=== PATIENT | female | born 1970 | race Caucasian/White ===

== ENCOUNTER → 2017-07-25 | Day surgery (SDC) | payer OTHER ==
[~2017-07-25] MED LIST: Dextrose 5%-Lactated Ringers 1,000 ML IV SCH; Ketorolac 60 MG/2 ML SDV IM ONE; Lidocaine 0.5% 50 ML SDV ONE; Lidocaine 1% with EPINEPHrine 1:100,000 50 ML MDV ONE; Midazolam 1 MG/ML 2 ML SDV ONE; Propofol 200 MG/20 ML SDV ONE; ceFAZolin 2 GM in Premix Bag 1 BAG IV ONE; ceFAZolin 2 GM in Sodium Chloride 0.9% 50 ML IV ONE; fentaNYL 100 MCG/2 ML SDV ONE
[2017-07-25 10:52] VITALS: BP 121/79
--- NOTE | 2017-07-27 16:41 | OR ---
DATE OF PROCEDURE: 07/25/2017 PREOPERATIVE DIAGNOSIS: Left carpal tunnel syndrome. POSTOPERATIVE DIAGNOSIS: Left carpal tunnel syndrome. OPERATIVE PROCEDURE: Left carpal tunnel release (57129). ANESTHESIA: IV block plus sedation. INDICATION FOR PROCEDURE: This 47-year-old is presenting with bilateral carpal tunnel syndrome. Clinically, the left side is more severely affected, and she wished to proceed with left carpal tunnel release at this time. Potential risks including bleeding, infection, injury to median nerve and/or its branches, possible incomplete relief of symptoms following the release were all reviewed, and the patient wishes to proceed. DETAILS OF PROCEDURE: The patient was taken to the operating room and placed in a supine position. IV block was placed affecting the left forearm and hand, while the patient received concurrent IV sedation, those areas were prepped and draped. A standard carpal tunnel incision was then made over the left hand and wrist, and carried down through the skin and subcutaneous tissue. The transverse carpal ligament was then identified and divided to maintain an ulnar orientation with regard to the median nerve to minimize chances of nerve branch injury. This extended down into the palm of hand until there was complete relief of any pressure over the median nerve. Median nerve otherwise appeared to be intact, and the transverse carpal ligament, as expected, was fairly thickened and retracted under tension. The incision was then closed with 4-0 Vicryl in a subdermal stitch and then a 4-0 Prolene skin stitch. Dressing was applied. The patient was taken to the recovery room in a satisfactory condition. There were no evident complications. Shaheen Quinteros MD /[id number]
== END ==
LOC: JP.SDS 07:41
PROVIDERS: ATTEND Surgery
DX: G56.02 Carpal tunnel syndrome, left upper limb (principal); Z88.1 Allergy status to other antibiotic agents; Z88.8 Allergy status to other drugs, medicaments and biological substances; Z87.891 Personal history of nicotine dependence; Z98.890 Other specified postprocedural states; Z90.49 Acquired absence of other specified parts of digestive tract; Z68.30 Body mass index [BMI] 30.0-30.9, adult
CPT/HCPCS: 64721; J0690; J1885; J2250; J2704; J3010; J7042; J7050

== ENCOUNTER 2017-09-09 05:23 | Day surgery (SDC) | payer OTHER ==
[2017-09-09] MEDS ORDERED: Acetaminophen 500 MG Tab PO ONE (06:25)
[2017-09-09] MEDS ORDERED: Dextrose 5%-Lactated Ringers 1,000 ML IV SCH (06:30)
[2017-09-09] MEDS ORDERED: fentaNYL 100 MCG/2 ML SDV ONE (07:03)
[2017-09-09] MEDS ORDERED: Propofol 200 MG/20 ML SDV ONE (07:03)
[2017-09-09] MEDS ORDERED: Midazolam 1 MG/ML 2 ML SDV ONE (07:03)
[2017-09-09] MEDS ORDERED: Lidocaine 0.5% 50 ML SDV ONE (07:06)
[2017-09-09] MEDS ORDERED: Lidocaine 1% with EPINEPHrine 1:100,000 50 ML MDV ONE (07:07)
[2017-09-09] MEDS ORDERED: ceFAZolin 1 GM in Premix Bag 1 BAG IV ONE (07:15)
[2017-09-09] MEDS ORDERED: Ketorolac 60 MG/2 ML SDV IM ONE (08:20)
[2017-09-09] MEDS ORDERED: Acetaminophen/HYDROcodone 325-5 MG Tab PO ONE (08:42)
[2017-09-09 08:59] VITALS: BP 136/91
--- NOTE | 2017-09-12 09:53 | OR ---
DATE OF PROCEDURE: 09/09/2017 PREOPERATIVE DIAGNOSIS: Right carpal tunnel syndrome. POSTOPERATIVE DIAGNOSES: 1. Right carpal tunnel syndrome. 2. Lipoma located within the right carpal tunnel. OPERATIVE PROCEDURE: 1. Right carpal tunnel release (06259). 2. Excision of a lipoma located within the carpal tunnel (09923). ANESTHESIA: IV block plus sedation. INDICATION FOR PROCEDURE: A 47-year-old, recently presenting with bilateral carpal tunnel syndrome. She previously underwent a left carpal tunnel release with good results and now presents for the right side to be corrected. Potential risks including bleeding, infection, injury to the median nerve and/or its branches, possible incomplete relief of symptoms were all reviewed, and the patient wishes to proceed. DETAILS OF PROCEDURE: The patient was taken to the operating room and placed in a supine position. After IV sedation was administered, IV block was placed affecting the right forearm and hand and those areas were prepped and draped. A standard carpal tunnel incision was then made and carried down through the skin and subcutaneous tissue. The transverse carpal ligament was then divided for its length and did retract under a considerable tension and was noted to be quite thickened. An 1.5 cm lipoma was also located within the carpal tunnel, likely contributing to patient's symptoms. This was excised and sent as a separate specimen. At that point, no further problems were noted. The incision was closed with some 4-0 Vicryl subdermal stitch and then 5-0 Prolene skin stitch. Dressing was applied. The patient was taken to the recovery room in satisfactory condition. Shaheen Quinteros MD /[id number]
== END 2017-09-09 09:14 | disposition home or self-care (01) ==
LOC: JP.SDS 05:23
PROVIDERS: ATTEND Surgery
DX: G56.01 Carpal tunnel syndrome, right upper limb (principal); D17.21 Benign lipomatous neoplasm of skin and subcutaneous tissue of right arm; Z88.1 Allergy status to other antibiotic agents; Z88.8 Allergy status to other drugs, medicaments and biological substances; F17.200 Nicotine dependence, unspecified, uncomplicated
CPT/HCPCS: 11402; 12031; 64721; A9270; J0690; J1885; J2250; J2704; J3010; J7042; 88304

== ENCOUNTER 2018-06-07 07:35 | Day surgery (SDC) | payer OTHER ==
[2018-06-07] MEDS ORDERED: Propofol 200 MG/20 ML SDV ONE (07:48)
[2018-06-07] MEDS ORDERED: Midazolam 1 MG/ML 2 ML SDV ONE (07:49)
[2018-06-07] MEDS ORDERED: fentaNYL 100 MCG/2 ML SDV ONE (07:49)
[2018-06-07] MEDS ORDERED: Lactated Ringers 1,000 ML IV SCH (08:45)
[2018-06-07 10:42] VITALS: BP 132/78
--- NOTE | 2018-06-07 11:00 | OR ---
DATE OF PROCEDURE: 06/07/2018 SURGEON: Agapito Palma MD PREOPERATIVE DIAGNOSIS: Colon cancer screening. POSTOPERATIVE DIAGNOSIS: Moderate-sized polyp, 25 cm from the anal verge. PROCEDURES: Colonoscopy to the cecum with snare cautery polypectomy, 25 cm from the anal verge. ANESTHESIA: IV anesthesia with monitored anesthesia care. INDICATION: This 48-year-old white female is referred for a colonoscopy for colon cancer screening. She has never had a colonoscopic exam. I counseled her for the procedure including risks and alternatives, and she gave her informed consent to proceed. DESCRIPTION OF PROCEDURE: The patient was placed in the left lateral decubitus position. IV anesthesia was administered by the Anesthesia Service. Time-out was held. A rectal exam was performed, which was unremarkable. The flexible video Olympus colonoscope was introduced through her anus, up her rectum and out her colon, all the way to the cecum. Once the cecum was reached, the scope was slowly withdrawn, examining the mucosa throughout. No mucosal abnormalities were noted until we reached the sigmoid colon. Here, at about 25 cm from the anal verge, we encountered a prominent polyp. A snare was passed about its base. It was elevated up away from the bowel wall and amputated as electrocautery was applied. The polyp was aspirated up through the scope and captured in a polyp trap. The scope was withdrawn further with no other lesions noted. The scope was retroflexed in the rectum with the distal rectum appearing unremarkable. The scope was straightened and removed. She tolerated the procedure well. Agapito Palma MD /[id number]
== END 2018-06-07 11:05 | disposition home or self-care (01) ==
LOC: JP.SDS 07:35
PROVIDERS: ATTEND Surgery
DX: Z12.11 Encounter for screening for malignant neoplasm of colon (principal); D12.5 Benign neoplasm of sigmoid colon; Z88.1 Allergy status to other antibiotic agents; F17.200 Nicotine dependence, unspecified, uncomplicated; Z91.048 Other nonmedicinal substance allergy status
CPT/HCPCS: 45385; J2250; J2704; J3010; J7120

== ENCOUNTER 2021-06-01 07:51 | Day surgery (SDC) | payer OTHER ==
[~2021-06-01 07:51] MED LIST changes: -Dextrose 5%-Lactated Ringers 1,000 ML IV SCH; -Ketorolac 60 MG/2 ML SDV IM ONE; -Lidocaine 0.5% 50 ML SDV ONE; -Lidocaine 1% with EPINEPHrine 1:100,000 50 ML MDV ONE; -ceFAZolin 2 GM in Premix Bag 1 BAG IV ONE; -ceFAZolin 2 GM in Sodium Chloride 0.9% 50 ML IV ONE
[2021-06-01] MEDS: Sodium Chloride 0.9% 1,000 ML IV SCH (08:34)
[2021-06-01 11:05] VITALS: BP 118/88; PULSE 70
--- NOTE | 2021-06-01 11:14 | OR ---
DATE OF PROCEDURE: 06/01/2021 SURGEON: Ravi Zavaleta MD PROCEDURE: Colonoscopy. FINDINGS: Mass at approximately 10 cm, tattooed distally with Nancy Ink and contralateral side. COMPLICATIONS: None. 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 ANESTHESIA: MAC. PREOPERATIVE DIAGNOSIS: Screening colonoscopy. POSTOPERATIVE DIAGNOSIS: Screening colonoscopy. RISKS: Risks, benefits, alternatives, and limitations including, but not limited to infection, bleeding, perforation, false positives, and false negatives were explained to the patient and she wished to proceed. PROCEDURE IN DETAIL: The patient was placed in left lateral decubitus position. Digital rectal exam was performed without abnormality. Scope was introduced and advanced atraumatically to the ileocecal valve. A photo was taken of this. Scope was brought back to the ascending, transverse, descending colon, and retroflexed. At 10 cm, there was an approximately 3 cm flat lesion concerning for malignancy. This was biopsied using hot snare wire device in multiple locations. Nancy Ink was used to tattoo directly distal to this and in the proximal contralateral side. No ink was used proximal to the lesion. No other abnormalities were noted. The patient tolerated the procedure well. ADDENDUM:: The patient was notified to repeat colonoscopy in 1 year due to the size of the polyp and concern for conversion to malignancy. Ravi Zavaleta MD /[id number]
== END 2021-06-01 11:20 | disposition home or self-care (01) ==
LOC: JP.SDS 07:51
PROVIDERS: ATTEND Surgery
DX: Z12.11 Encounter for screening for malignant neoplasm of colon (principal); C18.9 Malignant neoplasm of colon, unspecified; E66.9 Obesity, unspecified; Z86.010 Personal history of colon polyps
CPT/HCPCS: 88305; J2250; J2704; J3010; J7030

== ENCOUNTER 2021-06-26 07:09 | Day surgery (SDC) | payer OTHER ==
[2021-06-26] MEDS ORDERED: Acetaminophen 500 MG Tab PO ONE (07:15)
[2021-06-26] MEDS ORDERED: Bupivacaine 0.5%/EPINEPHrine 1:200,000 50 ML MDV ONE (07:22)
[2021-06-26] MEDS ORDERED: Meropenem 500 MG SDV ONE (07:23)
[2021-06-26] MEDS ORDERED: Succinylcholine 200 MG/10 ML MDV ONE (07:34)
[2021-06-26] MEDS ORDERED: Rocuronium 50 MG/5 ML Vial ONE ×2 (07:34→09:59)
[2021-06-26] MEDS ORDERED: fentaNYL 250 MCG/5 ML SDV ONE (07:34)
[2021-06-26] MEDS ORDERED: Propofol 200 MG/20 ML SDV ONE (07:34)
[2021-06-26] MEDS ORDERED: Dexamethasone 4 MG/ML SDV ONE (07:34)
[2021-06-26] MEDS ORDERED: Glycopyrrolate 0.2 MG/ML 5 ML MDV ONE (07:34)
[2021-06-26] MEDS ORDERED: Ondansetron 4 MG/2 ML SDV ONE (07:34)
[2021-06-26] MEDS ORDERED: Neostigmine Methylsulfate 1 MG/ML 5 ML Syringe ONE (07:34)
[2021-06-26] MEDS ORDERED: Dextrose 5%-Lactated Ringers 1,000 ML IV SCH (08:00)
[2021-06-26] MEDS ORDERED: Albuterol/Ipratropium 3.0-0.5 MG/3 ML Neb Soln NEB ONE (08:30)
[2021-06-26] MEDS ORDERED: Ertapenem 1 GM in Sodium Chloride 0.9% 100 ML IV ONE (08:30)
[2021-06-26] MEDS ORDERED: Meropenem 500 MG in Sodium Chloride 0.9% 50 ML IV ONE (08:45)
[2021-06-26] MEDS ORDERED: Midazolam 1 MG/ML 2 ML SDV ONE (09:27)
[2021-06-26] MEDS ORDERED: Ketorolac 30 MG/ML SDV ONE (09:51)
[2021-06-26 12:29] VITALS: BP 126/81; PULSE 85
--- NOTE | 2021-06-28 10:48 | OR ---
DATE OF PROCEDURE: 06/26/2021 SURGEON: Shaheen Quinteros MD PREOPERATIVE DIAGNOSIS: Localized early stage rectal adenocarcinoma. POSTOPERATIVE DIAGNOSIS: Localized early stage rectal adenocarcinoma. OPERATIVE PROCEDURE: Transanal excision of early stage rectal adenocarcinoma (44212). ANESTHESIA: General. 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 Per the endoscopy report, this was noted to be around 10 cm from the dentate line, but on recent MRI, this was felt to be more in the range of 6 cm and this would appear to be a reasonably approachable via the transanal excision route. MRI otherwise showed no obvious significant deeper invasion and negative for any lymph nodes. Plan is to proceed with a transanal excision of this mass. The patient is aware of potential bleeding and infection, possibility of the tumor occurring locally, possibility that the final margins may be involved, i.e. the tumor is somewhat deeper than what would be adequately excised by means of a transanal approach which would require a subsequent formal resection were all gone over and the patient wishes to proceed. DETAILS OF PROCEDURE: The patient was taken to the operating room, and after general endotracheal anesthesia was induced, a Oquendo catheter was inserted which was removed at the end of the procedure, and the patient was placed in a prone jackknife position. The perianal area was then prepped and draped. At that point, the digital examination confirmed the mass located anteriorly. A rectal retractor was then placed and the mass was retracted downward. Sutures were then placed on the superior, inferior, and lateral sites of the mass allowing to be pulled down and then a suture placed across the center of the mass likewise allowing that to be pulled downward. The mass was then excised by means of a series of RAY lauro and the specimen delivered from the field. Mass was oriented with some sutures for the pathologic review. previous staple line was then also then reexcised and these final margins were also marked. This came out in 2 pieces, 1 more inferior, 1 in more superior aspect of the previous staple line and would represent the final margins. At that point, the hemostasis was evident. During the course of the procedure, the vaginal wall was checked before each of the staple firings so as to avoid incorporating that into the staple closure given this was an anterior located lesion and at no point was that probably evident and the procedure was then concluded. The patient was taken to the recovery room in satisfactory condition. Shaheen Quinteros MD /[id number]
== END 2021-06-26 13:16 | disposition home or self-care (01) ==
LOC: JP.SDS 07:09
PROVIDERS: ATTEND Surgery
DX: C20 Malignant neoplasm of rectum (principal); E66.9 Obesity, unspecified; F17.200 Nicotine dependence, unspecified, uncomplicated; Z90.49 Acquired absence of other specified parts of digestive tract; Z98.890 Other specified postprocedural states; Z79.899 Other long term (current) drug therapy; Z88.8 Allergy status to other drugs, medicaments and biological substances; Z68.33 Body mass index [BMI] 33.0-33.9, adult
CPT/HCPCS: 36415; 45171; 80053; 85027; 94640; A9270; J0330; J1100; J1335; J1885; J2185; J2250; J2405; J2704; J2710; J3010; J3490; J7121; J7620-GY

== ENCOUNTER 2021-09-28 06:27 | Day surgery (SDC) | payer OTHER ==
[2021-09-28] MEDS ORDERED: Dextrose 5%-Lactated Ringers 1,000 ML IV SCH (06:45)
[2021-09-28] MEDS ORDERED: Propofol 200 MG/20 ML SDV ONE (07:08)
[2021-09-28] MEDS ORDERED: fentaNYL 100 MCG/2 ML SDV ONE (07:08)
[2021-09-28] MEDS ORDERED: Midazolam 1 MG/ML 2 ML SDV ONE (07:08)
[2021-09-28 09:31] VITALS: BP 116/71; PULSE 78
--- NOTE | 2021-09-29 22:07 | OR ---
DATE OF PROCEDURE: 09/28/2021 SURGEON: Shaheen Quinteros MD PREOPERATIVE DIAGNOSIS: Status post transanal excision of early invasive rectal adenocarcinoma. POSTOPERATIVE DIAGNOSIS: Status post transanal excision of early invasive rectal adenocarcinoma. OPERATIVE PROCEDURE: Flexible sigmoidoscopy with multiple biopsies at previous transanal excision site. ANESTHESIA: IV sedation. INDICATION FOR PROCEDURE: A 51-year-old who is now 3 months status post a transanal excision of an early invasive adenocarcinoma. After discussion with Medical Oncology, the plan was made to follow this with serial flexible sigmoidoscopies and biopsies of the area along with serial rectal MRIs, and between the two, try to identify if there is any local recurrence. The potential risks of today's procedure including bleeding and perforation were discussed, and the patient wishes to proceed. DETAILS OF PROCEDURE: The patient was taken to the operating room, placed in a left lateral decubitus position. Preoperatively, she had received an enema and the prep was very satisfactory for the visualization of the area. After IV sedation was administered, the initial digital rectal exam was performed and was unremarkable. A flexible sigmoidoscope was then passed into the rectum. A linear array of lauro was then identified. There appeared to be some blood and granulation type tissue over the lauro; otherwise, no specific additional pathology, although biopsies of those areas that were likely granulation tissue have been made and no bleeding was noted. Procedure was then concluded. The patient tolerated the procedure well. The plan will be to repeat the flexible sigmoidoscopy in 3 months assuming that today's pathology is benign and the upcoming MRI, which will be done in [facility] in [place], does not show any signs of any local recurrence. Shaheen Quinteros MD /[id number]
== END 2021-09-28 09:33 | disposition home or self-care (01) ==
LOC: JP.SDS 06:27
PROVIDERS: ATTEND Surgery
DX: K62.1 Rectal polyp (principal); E66.9 Obesity, unspecified
CPT/HCPCS: 45331; 88305; J2250; J2704; J3010; J7121

== ENCOUNTER 2021-12-04 07:30 | Day surgery (SDC) | payer OTHER ==
[~2021-12-04 07:30] MED LIST changes: +Bupivacaine 0.5% 50 ML MDV ONE; +Lidocaine 1% with EPINEPHrine 1:100,000 50 ML MDV ONE; +Meropenem 500 MG SDV ONE
[2021-12-04 08:37] LABS: CORONAVIRUS COVID-19 NAA NEGATIVE (NEGATIVE)
[2021-12-04] MEDS ORDERED: Acetaminophen 500 MG Tab PO ONE (08:45)
[2021-12-04] MEDS ORDERED: Dextrose 5%-Lactated Ringers 1,000 ML IV SCH (08:45)
[2021-12-04] MEDS ORDERED: ceFAZolin 2 GM in Premix Bag 1 BAG IV ONE (08:45)
[2021-12-04] MEDS ORDERED: fentaNYL 100 MCG/2 ML SDV ONE (09:04)
[2021-12-04] MEDS ORDERED: Ketorolac 30 MG/ML SDV ONE (09:05)
[2021-12-04] MEDS ORDERED: Propofol 200 MG/20 ML SDV ONE (09:07)
[2021-12-04] MEDS ORDERED: fentaNYL 100 MCG/2 ML SDV IVPUSH ONE (10:04)
[2021-12-04] MEDS ORDERED: oxyCODONE 5 MG Tab PO PRN (11:24)
[2021-12-04 11:29] VITALS: BP 135/69; PULSE 61
== END 2021-12-04 11:56 | disposition home or self-care (01) ==
LOC: JP.SDS 07:30
PROVIDERS: ATTEND Surgery
DX: K40.31 Unilateral inguinal hernia, with obstruction, without gangrene, recurrent (principal); E66.9 Obesity, unspecified; F17.200 Nicotine dependence, unspecified, uncomplicated; Z88.8 Allergy status to other drugs, medicaments and biological substances; Z01.812 Encounter for preprocedural laboratory examination; Z20.822 Contact with and (suspected) exposure to COVID-19
CPT/HCPCS: 0241U; 49521; A9270; C1713; C1781; J0690; J1885; J2020; J2250; J2704; J3010; J3490; J7121; 88302; 88305; J2185

== ENCOUNTER → 2022-01-05 | Day surgery (SDC) | payer OTHER ==
[~2022-01-05] MED LIST changes: -Bupivacaine 0.5% 50 ML MDV ONE; +Dextrose 5%-Lactated Ringers 1,000 ML IV SCH; -Lidocaine 1% with EPINEPHrine 1:100,000 50 ML MDV ONE; -Meropenem 500 MG SDV ONE
[2022-01-05 08:49] VITALS: BP 128/78; PULSE 76
== END ==
LOC: JP.SDS 05:56
PROVIDERS: ATTEND Surgery
DX: Z09 Encounter for follow-up examination after completed treatment for conditions other than malignant neoplasm (principal); F17.290 Nicotine dependence, other tobacco product, uncomplicated; E66.9 Obesity, unspecified; Z98.890 Other specified postprocedural states; Z85.038 Personal history of other malignant neoplasm of large intestine
CPT/HCPCS: 88305; J2250; J2704; J3010; J7121

== ENCOUNTER 2022-06-01 08:08 | Day surgery (SDC) | payer OTHER ==
[2022-06-01] MEDS: Dextrose 5%-Lactated Ringers 1,000 ML IV SCH (08:45)
[2022-06-01] MEDS ORDERED: fentaNYL 100 MCG/2 ML SDV ONE (09:04)
[2022-06-01] MEDS ORDERED: Propofol 200 MG/20 ML SDV ONE (09:04)
[2022-06-01] MEDS ORDERED: Midazolam 1 MG/ML 2 ML SDV ONE (10:40)
[2022-06-01 12:03] VITALS: BP 143/89; PULSE 75
== END 2022-06-01 12:42 | disposition home or self-care (01) ==
LOC: JP.SDS 08:08
PROVIDERS: ATTEND Surgery
DX: Z12.11 Encounter for screening for malignant neoplasm of colon (principal); K64.9 Unspecified hemorrhoids; K62.89 Other specified diseases of anus and rectum; E66.9 Obesity, unspecified; R73.03 Prediabetes; Z85.048 Personal history of other malignant neoplasm of rectum, rectosigmoid junction, and anus; Z68.34 Body mass index [BMI] 34.0-34.9, adult
CPT/HCPCS: 88305; J2250; J2704; J3010; J7121

== ENCOUNTER 2022-08-31 05:49 | Day surgery (SDC) | payer OTHER ==
[2022-08-31] MEDS ORDERED: Dextrose 5%-Lactated Ringers 1,000 ML IV SCH (06:45)
[2022-08-31] MEDS ORDERED: Propofol 200 MG/20 ML SDV ONE ×2 (07:09→08:07)
[2022-08-31 09:08] VITALS: BP 120/83; PULSE 74
== END 2022-08-31 09:29 | disposition home or self-care (01) ==
LOC: JP.SDS 05:49
PROVIDERS: ATTEND Surgery
DX: Z12.11 Encounter for screening for malignant neoplasm of colon (principal); D12.8 Benign neoplasm of rectum; F17.200 Nicotine dependence, unspecified, uncomplicated; Z79.899 Other long term (current) drug therapy; Z88.1 Allergy status to other antibiotic agents; Z88.2 Allergy status to sulfonamides
CPT/HCPCS: 45331; 45338; J2704; J7121

== ENCOUNTER 2022-09-09 07:57 | Day surgery (SDC) | payer OTHER ==
[2022-09-09] MEDS ORDERED: Acetaminophen 500 MG Tab PO ONE (08:00)
[2022-09-09] MEDS ORDERED: Dextrose 5%-Lactated Ringers 1,000 ML IV SCH (08:30)
[2022-09-09] MEDS ORDERED: Glycopyrrolate 0.2 MG/ML 5 ML MDV ONE (08:40)
[2022-09-09] MEDS ORDERED: Rocuronium 50 MG/5 ML Vial ONE (08:40)
[2022-09-09] MEDS ORDERED: Dexamethasone 4 MG/ML SDV ONE (08:40)
[2022-09-09] MEDS ORDERED: Ondansetron 4 MG/2 ML SDV ONE (08:40)
[2022-09-09] MEDS ORDERED: Neostigmine Methylsulfate 1 MG/ML 5 ML Syringe ONE (08:40)
[2022-09-09] MEDS ORDERED: Succinylcholine 200 MG/10 ML MDV ONE (08:40)
[2022-09-09] MEDS ORDERED: Propofol 200 MG/20 ML SDV ONE ×2 (08:40→10:22)
[2022-09-09] MEDS ORDERED: Bupivacaine 0.5%/EPINEPHrine 1:200,000 50 ML MDV ONE (08:41)
[2022-09-09 08:46] LABS: ESTIMATED GFR 67 mL/min (>60)
[2022-09-09] MEDS ORDERED: fentaNYL 250 MCG/5 ML SDV ONE (08:57)
[2022-09-09] MEDS ORDERED: Meropenem 500 MG in Sodium Chloride 0.9% 50 ML IV ONE (09:15)
[2022-09-09] MEDS ORDERED: HYDROmorphone 1 MG/ML Syringe IVPUSH ONE (11:45)
[2022-09-09 12:06] VITALS: BP 123/84; PULSE 67
== END 2022-09-09 12:40 | disposition home or self-care (01) ==
LOC: JP.SDS 07:57 → EDSTATUS 11:45 → JP.SDS 12:40
PROVIDERS: ATTEND Surgery
DX: L98.9 Disorder of the skin and subcutaneous tissue, unspecified (principal); J45.909 Unspecified asthma, uncomplicated; F17.200 Nicotine dependence, unspecified, uncomplicated; E66.9 Obesity, unspecified; G47.00 Insomnia, unspecified; R73.03 Prediabetes; M19.90 Unspecified osteoarthritis, unspecified site; Z68.34 Body mass index [BMI] 34.0-34.9, adult; Z79.899 Other long term (current) drug therapy; Z90.49 Acquired absence of other specified parts of digestive tract; Z98.890 Other specified postprocedural states; Z88.1 Allergy status to other antibiotic agents
CPT/HCPCS: 36415; 45172; 80053; 82378; 84703; 85027; 88305; A9270; J0330; J1100; J1170; J2185; J2405; J2704; J2710; J3010; J3490; J7121

== ENCOUNTER 2022-09-23 06:27 | Day surgery (SDC) | payer OTHER ==
[2022-09-23] MEDS ORDERED: Acetaminophen 500 MG Tab PO ONE (06:30)
[2022-09-23] MEDS ORDERED: Lidocaine 1% with EPINEPHrine 1:100,000 50 ML MDV ONE (06:52)
[2022-09-23] MEDS ORDERED: Bupivacaine 0.5% 30 ML SDV ONE (06:52)
[2022-09-23] MEDS ORDERED: Dextrose 5%-Lactated Ringers 1,000 ML IV SCH (07:00)
[2022-09-23] MEDS ORDERED: fentaNYL 100 MCG/2 ML SDV ONE (07:22)
[2022-09-23] MEDS ORDERED: Midazolam 1 MG/ML 2 ML SDV ONE (07:22)
[2022-09-23] MEDS ORDERED: Propofol 200 MG/20 ML SDV ONE ×3 (07:23→08:00)
[2022-09-23] MEDS ORDERED: Levofloxacin/Dextrose 5%-Water 500 MG in Premix Bag 1 BAG IV ONE (07:45)
[2022-09-23 09:46] VITALS: BP 139/76; PULSE 79
== END 2022-09-23 09:45 | disposition home or self-care (01) ==
LOC: JP.SDS 06:27
PROVIDERS: ATTEND Surgery
DX: R59.0 Localized enlarged lymph nodes (principal); F17.200 Nicotine dependence, unspecified, uncomplicated; E11.9 Type 2 diabetes mellitus without complications; Z79.899 Other long term (current) drug therapy; Z88.1 Allergy status to other antibiotic agents; Z88.2 Allergy status to sulfonamides
CPT/HCPCS: 76998; 87015; 87070; 87075; 87102; 87116; 87205; 87206; 87220; 88305; A9270-GY; J1956; J2250; J2704; J3010; J3490; J7121

== ENCOUNTER → 2022-12-07 | Day surgery (SDC) | payer OTHER ==
[~2022-12-07] MED LIST changes: -fentaNYL 100 MCG/2 ML SDV ONE; +fentaNYL 50 MCG/ML SDV ONE
[2022-12-07 09:46] VITALS: BP 135/80; PULSE 68
== END ==
LOC: JP.SDS 06:33
PROVIDERS: ATTEND Surgery
DX: Z12.11 Encounter for screening for malignant neoplasm of colon (principal); K62.89 Other specified diseases of anus and rectum; K62.6 Ulcer of anus and rectum; E66.9 Obesity, unspecified; Z68.33 Body mass index [BMI] 33.0-33.9, adult; Z85.048 Personal history of other malignant neoplasm of rectum, rectosigmoid junction, and anus; Z79.899 Other long term (current) drug therapy; Z88.1 Allergy status to other antibiotic agents; Z88.2 Allergy status to sulfonamides; Z91.040 Latex allergy status
CPT/HCPCS: 45331; 45338; 88305; 88342; J2250; J2704; J3010; J7121

== ENCOUNTER 2022-12-27 06:32 | Day surgery (SDC) | payer OTHER ==
[2022-12-27] MEDS ORDERED: Bupivacaine 0.5%/EPINEPHrine 1:200,000 50 ML MDV ONE (06:45)
[2022-12-27] MEDS ORDERED: Albuterol/Ipratropium 3.0-0.5 MG/3 ML Neb Soln NEB ONE (07:02)
[2022-12-27] MEDS ORDERED: Succinylcholine 200 MG/10 ML MDV ONE (07:07)
[2022-12-27] MEDS ORDERED: fentaNYL 250 MCG/5 ML SDV ONE ×2 (07:07→08:31)
[2022-12-27] MEDS ORDERED: Glycopyrrolate 0.2 MG/ML 5 ML MDV ONE (07:07)
[2022-12-27] MEDS ORDERED: Neostigmine Methylsulfate 1 MG/ML 5 ML Syringe ONE (07:07)
[2022-12-27] MEDS ORDERED: Rocuronium 50 MG/5 ML Vial ONE (07:07)
[2022-12-27] MEDS ORDERED: Dexamethasone 4 MG/ML SDV ONE (07:07)
[2022-12-27] MEDS ORDERED: Propofol 200 MG/20 ML SDV ONE (07:07)
[2022-12-27] MEDS ORDERED: Ondansetron 4 MG/2 ML SDV ONE (07:07)
[2022-12-27] MEDS ORDERED: Dextrose 5%-Lactated Ringers 1,000 ML IV SCH (07:15)
[2022-12-27] MEDS ORDERED: NEOMYCIN ONE ×2 (07:30)
[2022-12-27] MEDS ORDERED: POLYMYXIN B ONE ×2 (07:30)
[2022-12-27] MEDS ORDERED: SODIUM CHLORIDE 0.9% ONE ×2 (07:30)
[2022-12-27] MEDS ORDERED: Meropenem 500 MG in Sodium Chloride 0.9% 50 ML IV ONE (08:00)
[2022-12-27] MEDS ORDERED: Sugammadex Sodium 200 MG/2 ML VIAL ONE (08:52)
[2022-12-27 10:16] VITALS: BP 119/74; PULSE 92
== END 2022-12-27 10:38 | disposition home or self-care (01) ==
LOC: JP.SDS 06:32
PROVIDERS: ATTEND Surgery
DX: C21.0 Malignant neoplasm of anus, unspecified (principal); G47.00 Insomnia, unspecified; E66.9 Obesity, unspecified; R73.03 Prediabetes; M54.50 Low back pain, unspecified; M19.90 Unspecified osteoarthritis, unspecified site; J45.909 Unspecified asthma, uncomplicated; Z98.890 Other specified postprocedural states; Z79.899 Other long term (current) drug therapy; Z88.4 Allergy status to anesthetic agent; Z88.1 Allergy status to other antibiotic agents; Z68.34 Body mass index [BMI] 34.0-34.9, adult
CPT/HCPCS: 36415; 45172; 82378; 83735; 84100; 94640; J0330; J1100; J2185; J2405; J2704; J2710; J3010; J3490; J7030; J7121; 88305; J7620

== ENCOUNTER 2023-02-07 05:57 | Day surgery (SDC) | payer OTHER ==
[2023-02-07] MEDS ORDERED: Dextrose 5%-Lactated Ringers 1,000 ML IV SCH (06:30)
[2023-02-07] MEDS ORDERED: Propofol 200 MG/20 ML SDV ONE ×3 (07:08→07:35)
[2023-02-07] MEDS ORDERED: fentaNYL 100 MCG/2 ML SDV ONE (07:08)
[2023-02-07] MEDS ORDERED: Midazolam 1 MG/ML 2 ML SDV ONE (07:08)
[2023-02-07 08:42] LABS: HEMATOCRIT 38.2 % (34.3-46.0); HEMOGLOBIN 12.5 g/dL (11.2-15.5); MEAN CORPUSCULAR HEMOGLOBIN 29.7 pg (31.6-35.5); MEAN CORPUSCULAR HGB CONC 32.7 g/dL (31.6-35.5); MEAN CORPUSCULAR VOLUME 90.7 fL (81.4-99.0); RED BLOOD CELL COUNT 4.21 M/uL (3.77-5.24); WHITE BLOOD CELL COUNT,WBC 6.4 K/uL (3.2-11.0)
[2023-02-07 09:03] VITALS: BP 133/74; PULSE 79
[2023-02-07 13:22] LABS: A/G RATIO 1.1 (1.2-2.2); ALANINE AMINOTRANSFERASE,ALT 21 U/L (12-78); ALBUMIN 3.3 g/dL (3.4-5.0); ALKALINE PHOSPHATASE 60 U/L (46-116); ANION GAP 9.7 mmol/L (5.0-14.0); ASPARTATE AMNIOTRANSFERASE,AST 15 U/L (15-37); BILIRUBIN TOTAL 0.3 mg/dL (0.2-1.0); BLOOD UREA NITROGEN,BUN 10 mg/dL (7-18); CALCIUM 8.5 mg/dL (8.5-10.1); CARBON DIOXIDE,CO2 23 mmol/L (21-32); CHLORIDE,CL 107 mmol/L (100-108); CREATININE 1.1 mg/dL (0.6-1.0); EST CRCL DRUG DOSING (CG) 50.49 mL/min; ESTIMATED GFR 60 mL/min (>60); GLUCOSE RANDOM 108 mg/dL (74-106); MAGNESIUM 1.7 mg/dL (1.8-2.4); PHOSPHORUS 3.5 mg/dL (2.5-4.9); POTASSIUM,K 3.7 mmol/L (3.6-5.2); PROTEIN TOTAL,TP 6.4 g/dL (6.4-8.2); SODIUM,NA 140 mmol/L (140-148)
== END 2023-02-07 09:41 | disposition home or self-care (01) ==
LOC: JP.SDS 05:57
PROVIDERS: ATTEND Surgery
DX: D12.8 Benign neoplasm of rectum (principal); K51.40 Inflammatory polyps of colon without complications; K21.9 Gastro-esophageal reflux disease without esophagitis; R73.03 Prediabetes; E66.9 Obesity, unspecified; Z68.34 Body mass index [BMI] 34.0-34.9, adult; Z88.8 Allergy status to other drugs, medicaments and biological substances; Z88.1 Allergy status to other antibiotic agents; Z79.899 Other long term (current) drug therapy; Z20.822 Contact with and (suspected) exposure to COVID-19
CPT/HCPCS: 36415; 45380; 80053; 82378; 83735; 84100; 85027; 87635; 88305; J2250; J2704; J3010; J7121; U0002

== ENCOUNTER 2023-02-08 06:51 | Inpatient (IN) | payer OTHER ==
[2023-02-08] MEDS ORDERED: Ondansetron 4 MG/2 ML SDV ONE (07:08)
[2023-02-08] MEDS ORDERED: Glycopyrrolate 0.2 MG/ML 5 ML MDV ONE (07:08)
[2023-02-08] MEDS ORDERED: fentaNYL 250 MCG/5 ML SDV ONE (07:08)
[2023-02-08] MEDS ORDERED: Rocuronium 50 MG/5 ML Vial ONE ×2 (07:08→10:20)
[2023-02-08] MEDS ORDERED: Dexamethasone 4 MG/ML SDV ONE (07:08)
[2023-02-08] MEDS ORDERED: Neostigmine Methylsulfate 1 MG/ML 5 ML Syringe ONE (07:08)
[2023-02-08] MEDS ORDERED: Propofol 200 MG/20 ML SDV ONE (07:08)
[2023-02-08] MEDS ORDERED: Sodium Chloride 0.9% 10 ML ONE (07:10)
[2023-02-08] MEDS ORDERED: Meropenem 500 MG SDV ONE (07:15)
[2023-02-08] MEDS ORDERED: Bupivacaine 0.5% 50 ML MDV ONE (07:15)
[2023-02-08] MEDS ORDERED: Lidocaine 1% with EPINEPHrine 1:100,000 50 ML MDV ONE (07:15)
[2023-02-08] MEDS ORDERED: Dextrose 5%-Lactated Ringers 1,000 ML IV SCH ×2 (07:30→13:00)
[2023-02-08] MEDS ORDERED: Ketamine 500 MG/5 ML MDV IV SCH (08:00)
[2023-02-08] MEDS ORDERED: Naloxone 0.4 MG/ML SDV IVPUSH PRN (08:00)
[2023-02-08] MEDS ORDERED: Meropenem 500 MG in Sodium Chloride 0.9% 50 ML IV ONE (08:00)
[2023-02-08] MEDS ORDERED: Albuterol/Ipratropium 3.0-0.5 MG/3 ML Neb Soln NEB ONE (08:00)
[2023-02-08] MEDS ORDERED: Ketamine 16 MG in Sodium Chloride 0.9% 19.84 ML IV SCH (08:00)
[2023-02-08] MEDS: Scopolamine 1.5 MG Transdermal Patch TOP SCH (08:12)
[2023-02-08] MEDS ORDERED: Fluorescein 5 ML Vial ONE (10:01)
[2023-02-08] MEDS ORDERED: Furosemide 100 MG/10 ML SDV ONE (10:40)
[2023-02-08] MEDS ORDERED: Naloxone 0.4 MG/ML SDV IV PRN (12:20)
[2023-02-08] MEDS ORDERED: diphenhydrAMINE 50 MG/ML SDV IVPUSH PRN ×3 (12:20→13:00)
[2023-02-08] MEDS ORDERED: Cyclobenzaprine 10 MG Tab PO PRN (12:49)
[2023-02-08] MEDS ORDERED: Labetalol 20 MG/4 ML Syringe IVPUSH PRN (13:00)
[2023-02-08] MEDS ORDERED: Acetaminophen 500 MG Tab PO PRN (13:00)
[2023-02-08] MEDS ORDERED: Ondansetron 4 MG/2 ML SDV IVPUSH PRN (13:00)
[2023-02-08] MEDS ORDERED: Metoclopramide 10 MG/2 ML SDV IVPUSH PRN (13:00)
[2023-02-08] MEDS ORDERED: Albuterol/Ipratropium 3.0-0.5 MG/3 ML Neb Soln INH PRN (13:00)
[2023-02-08] MEDS: fentaNYL 2,500 MCG in Sodium Chloride 0.9% 200 ML EPIDUR SCH (13:23)
[2023-02-08] MEDS: Acetaminophen 500 MG Tab PO SCH ×2 (14:06→22:04)
[2023-02-08] MEDS: SCOPOLAMINE PATCH CHECK TOP SCH (14:07)
[2023-02-08] MEDS: Pantoprazole 40 MG Vial IVPUSH SCH (14:08)
[2023-02-08] MEDS: Meropenem 500 MG in Sodium Chloride 0.9% 50 ML IV SCH ×2 (14:09→20:07)
[2023-02-08] MEDS: Albuterol/Ipratropium 3.0-0.5 MG/3 ML Neb Soln INH SCH ×2 (14:36→20:09)
[2023-02-08] MEDS: Naloxone 0.4 MG in Dextrose 5%-Lactated Ringers 1,000 ML IV SCH ×2 (15:37→22:03)
[2023-02-08] MEDS ORDERED: MVI, Adult with Vitamin K 10 ML, Thiamine 200 MG, Zinc/Copper/Manganese/Selenium 1 ML i... IV SCH ×4 (16:00)
[2023-02-08] MEDS: hydrOXYzine HCl 50 MG/ML SDV IM PRN (16:25)
[2023-02-08] MEDS: ADVAIR 250/50 INHALER (PTOM) INH SCH (20:10)
[2023-02-08] MEDS: buPROPion 150 MG Tab.SR PO SCH (20:10)
[2023-02-09] MEDS: Meropenem 500 MG in Sodium Chloride 0.9% 50 ML IV SCH ×4 (01:47→20:14)
[2023-02-09] MEDS: fentaNYL 2,500 MCG in Sodium Chloride 0.9% 200 ML EPIDUR SCH ×2 (01:47→22:16)
[2023-02-09] MEDS: Naloxone 0.4 MG in Dextrose 5%-Lactated Ringers 1,000 ML IV SCH (04:18)
[2023-02-09] MEDS: Acetaminophen 500 MG Tab PO SCH ×4 (04:18→22:17)
[2023-02-09] MEDS: ADVAIR 250/50 INHALER (PTOM) INH SCH ×2 (07:15→20:17)
[2023-02-09] MEDS: Albuterol/Ipratropium 3.0-0.5 MG/3 ML Neb Soln INH SCH ×4 (07:15→20:16)
[2023-02-09] MEDS ORDERED: Naloxone 0.4 MG in Dextrose 5%-Lactated Ringers 1,000 ML IV SCH (07:49)
[2023-02-09] MEDS: Bisacodyl 5 MG Tab PO SCH ×2 (08:44→20:15)
[2023-02-09] MEDS: buPROPion 150 MG Tab.SR PO SCH ×2 (08:44→20:17)
[2023-02-09] MEDS: Docusate Sodium 100 MG Cap PO SCH ×2 (08:45→20:15)
[2023-02-09] MEDS: Celecoxib 200 MG Cap PO SCH ×2 (08:45→20:15)
[2023-02-09] MEDS ORDERED: SCOPOLAMINE PATCH CHECK TOP SCH (09:00)
[2023-02-09] MEDS: SCOPOLAMINE PATCH CHECK TOP SCH (09:36)
[2023-02-09] MEDS: Dextrose 5%-Lactated Ringers 1,000 ML with Naloxone 0.4 MG IV SCH ×4 (10:54→21:45)
[2023-02-09] MEDS: Pantoprazole 40 MG Vial IVPUSH SCH (13:50)
[2023-02-10] MEDS ORDERED: Meropenem 500 MG SDV ONE (06:16)
[2023-02-10] MEDS ORDERED: Lidocaine 1% with EPINEPHrine 1:100,000 50 ML MDV ONE (06:16)
[2023-02-10] MEDS ORDERED: Bupivacaine 0.5% 50 ML MDV ONE (06:16)
[2023-02-10] MEDS ORDERED: Propofol 200 MG/20 ML SDV ONE (06:54)
[2023-02-10] MEDS: ADVAIR 250/50 INHALER (PTOM) INH SCH ×2 (07:08→22:05)
[2023-02-10] MEDS: Albuterol/Ipratropium 3.0-0.5 MG/3 ML Neb Soln INH SCH ×4 (07:08→22:05)
[2023-02-10] MEDS: Acetaminophen 500 MG Tab PO SCH ×3 (07:21→22:06)
[2023-02-10] MEDS ORDERED: Ropivacaine 44 ML, dexAMETHasone 8 MG, EPINEPHrine 0.4 MG, Sodium Chloride 0.9% 33.6 ML NERVRT SCH ×4 (07:30)
[2023-02-10] MEDS: Dextrose 5%-Lactated Ringers 1,000 ML with Naloxone 0.4 MG IV SCH ×4 (07:33→19:41)
[2023-02-10] MEDS: SCOPOLAMINE PATCH CHECK TOP SCH (08:11)
[2023-02-10] MEDS: buPROPion 150 MG Tab.SR PO SCH ×2 (08:12→22:05)
[2023-02-10] MEDS: Bisacodyl 5 MG Tab PO SCH ×2 (08:12→22:05)
[2023-02-10] MEDS: Celecoxib 200 MG Cap PO SCH ×2 (08:12→22:04)
[2023-02-10] MEDS: Docusate Sodium 100 MG Cap PO SCH ×2 (08:12→22:04)
[2023-02-10] MEDS ORDERED: Cyanocobalamin (Vitamin B12) 1,000 MCG/ML SDV IM ONE (09:00)
[2023-02-10] MEDS: Metoclopramide 10 MG/2 ML SDV IVPUSH SCH ×3 (09:48→22:06)
[2023-02-10] MEDS: Pantoprazole 40 MG Vial IVPUSH SCH (14:42)
[2023-02-10] MEDS: fentaNYL 2,500 MCG in Sodium Chloride 0.9% 200 ML EPIDUR SCH (15:10)
[2023-02-10] MEDS ORDERED: Lactated Ringers 500 ML IV ONE (16:30)
[2023-02-11] MEDS ORDERED: Lactated Ringers 500 ML IV SCH (01:45)
[2023-02-11] MEDS ORDERED: Furosemide 20 MG/2 ML VIAL IVPUSH ONE (04:49)
[2023-02-11] MEDS: Metoclopramide 10 MG/2 ML SDV IVPUSH SCH ×4 (05:12→22:21)
[2023-02-11] MEDS: Acetaminophen 500 MG Tab PO SCH ×3 (05:18→22:11)
[2023-02-11] MEDS ORDERED: Lidocaine 1% with EPINEPHrine 1:100,000 50 ML MDV ONE (06:41)
[2023-02-11] MEDS ORDERED: Bupivacaine 0.5% 50 ML MDV ONE (06:41)
[2023-02-11] MEDS ORDERED: Meropenem 500 MG SDV ONE (06:41)
[2023-02-11] MEDS: ADVAIR 250/50 INHALER (PTOM) INH SCH ×2 (06:45→22:10)
[2023-02-11] MEDS ORDERED: Propofol 200 MG/20 ML SDV ONE (06:56)
[2023-02-11] MEDS: Albuterol/Ipratropium 3.0-0.5 MG/3 ML Neb Soln INH SCH ×4 (07:08→22:07)
[2023-02-11] MEDS ORDERED: fentaNYL 100 MCG/2 ML SDV ONE (07:16)
[2023-02-11] MEDS ORDERED: Ropivacaine 44 ML, dexAMETHasone 8 MG, EPINEPHrine 0.4 MG, Sodium Chloride 0.9% 33.6 ML NERVRT SCH ×4 (07:30)
[2023-02-11] MEDS ORDERED: Ondansetron 4 MG/2 ML SDV ONE (07:34)
[2023-02-11] MEDS ORDERED: Lactated Ringers 1,000 ML ONE (07:35)
[2023-02-11] MEDS ORDERED: Ketorolac 30 MG/ML SDV ONE (07:36)
[2023-02-11] MEDS: Dextrose 5%-Lactated Ringers 1,000 ML with Naloxone 0.4 MG IV SCH ×2 (08:30)
[2023-02-11] MEDS: Docusate Sodium 100 MG Cap PO SCH ×2 (09:12→22:09)
[2023-02-11] MEDS: Bisacodyl 5 MG Tab PO SCH ×2 (09:12→22:09)
[2023-02-11] MEDS: Scopolamine 1.5 MG Transdermal Patch TOP SCH (09:12)
[2023-02-11] MEDS: buPROPion 150 MG Tab.SR PO SCH ×2 (09:13→22:10)
[2023-02-11] MEDS: Celecoxib 200 MG Cap PO SCH (09:13)
[2023-02-11] MEDS: SCOPOLAMINE PATCH CHECK TOP SCH (09:13)
[2023-02-11] MEDS ORDERED: Ibuprofen 600 MG Tab PO SCH (10:00)
[2023-02-11] MEDS: HYDROmorphone 2 MG Tab PO PRN ×2 (12:28→22:32)
[2023-02-11] MEDS: Pantoprazole 40 MG Vial IVPUSH SCH (13:57)
[2023-02-11] MEDS: Dextrose 5%-Lactated Ringers 1,000 ML IV SCH (17:43)
[2023-02-11] MEDS: Ibuprofen 600 MG Tab PO SCH (22:10)
[2023-02-12] MEDS: Ibuprofen 600 MG Tab PO SCH ×4 (04:25→21:54)
[2023-02-12] MEDS: Metoclopramide 10 MG/2 ML SDV IVPUSH SCH ×4 (04:27→21:55)
[2023-02-12] MEDS: Dextrose 5%-Lactated Ringers 1,000 ML IV SCH ×2 (04:48→19:33)
[2023-02-12 04:59] LABS: BASOPHILS ABSOLUTE AUTO 0.03 K/uL (0.00-0.10); BASOPHILS PERCENT AUTO 0.2 % (0.1-1.3); EOSINOPHILS ABSOLUTE AUTO 0.06 K/uL (0.00-0.40); EOSINOPHILS PERCENT AUTO 0.5 % (0.0-5.4); HEMOGLOBIN 11.6 g/dL (11.2-15.5); IMMATURE GRAN ABSOLUTE AUTO 0.11 K/uL (0.00-0.23); IMMATURE GRAN PERCENT AUTO 0.9 % (0.0-0.7); LYMPHOCYTES ABSOLUTE AUTO 1.17 K/uL (0.8-3.3); LYMPHOCYTES PERCENT AUTO 9.4 % (11.4-47.7); MEAN CORPUSCULAR HEMOGLOBIN 29.6 pg (31.6-35.5); MEAN CORPUSCULAR HGB CONC 34.1 g/dL (31.6-35.5); MEAN CORPUSCULAR VOLUME 86.7 fL (81.4-99.0); MONOCYTES ABSOLUTE AUTO 0.93 K/uL (0.20-0.90); MONOCYTES PERCENT AUTO 7.5 % (3.3-12.6); NEUTROPHILS ABSOLUTE AUTO 10.14 K/uL (1.0-7.6); NEUTROPHILS PERCENT AUTO 81.5 % (40.0-78.1); PLATELET COUNT,PLT 293 K/uL (130-375); RED BLOOD CELL COUNT 3.92 M/uL (3.77-5.24); WHITE BLOOD CELL COUNT,WBC 12.4 K/uL (3.2-11.0)
[2023-02-12] MEDS: Acetaminophen 500 MG Tab PO SCH ×3 (05:11→21:54)
[2023-02-12 05:29] LABS: A/G RATIO 0.8 (1.2-2.2); ALANINE AMINOTRANSFERASE,ALT 27 U/L (12-78); ALBUMIN 2.7 g/dL (3.4-5.0); ALKALINE PHOSPHATASE 62 U/L (46-116); ASPARTATE AMNIOTRANSFERASE,AST 24 U/L (15-37); BILIRUBIN TOTAL 0.4 mg/dL (0.2-1.0); BLOOD UREA NITROGEN,BUN 6 mg/dL (7-18); CALCIUM 8.9 mg/dL (8.5-10.1); CARBON DIOXIDE,CO2 26 mmol/L (21-32); CHLORIDE,CL 100 mmol/L (100-108); CREATININE 0.8 mg/dL (0.6-1.0); EST CRCL DRUG DOSING (CG) 69.92 mL/min; ESTIMATED GFR 88 mL/min (>60); GLUCOSE RANDOM 118 mg/dL (74-106); MAGNESIUM 1.5 mg/dL (1.8-2.4); PHOSPHORUS 3.2 mg/dL (2.5-4.9); POTASSIUM,K 3.7 mmol/L (3.6-5.2); PRO B-TYPE NATRIUR PEPT,BNPPRO 887 pg/mL (5-125); PROTEIN TOTAL,TP 6.3 g/dL (6.4-8.2); SODIUM,NA 134 mmol/L (140-148)
[2023-02-12 05:33] LABS: ANION GAP 11.7 mmol/L (5.0-14.0)
[2023-02-12] MEDS: Albuterol/Ipratropium 3.0-0.5 MG/3 ML Neb Soln INH SCH ×4 (07:40→21:48)
[2023-02-12] MEDS: ADVAIR 250/50 INHALER (PTOM) INH SCH ×2 (07:40→21:55)
[2023-02-12] MEDS: Docusate Sodium 100 MG Cap PO SCH ×2 (08:52→21:55)
[2023-02-12] MEDS: Bisacodyl 5 MG Tab PO SCH ×2 (08:53→21:54)
[2023-02-12] MEDS: SCOPOLAMINE PATCH CHECK TOP SCH (08:53)
[2023-02-12] MEDS: buPROPion 150 MG Tab.SR PO SCH ×2 (08:54→21:54)
[2023-02-12] MEDS ORDERED: Bisacodyl 10 MG Supp RECTAL ONE (10:00)
[2023-02-12] MEDS: hydrOXYzine HCl 50 MG/ML SDV IM PRN (11:34)
[2023-02-12] MEDS: Magnesium Sulfate/Water 2 GM in Premix Bag 1 BAG IV SCH ×3 (12:00→23:10)
[2023-02-12] MEDS ORDERED: Benzocaine/Cetylpyridinium/Menthol Lozenge MUCMEM PRN (14:16)
[2023-02-12] MEDS ORDERED: Phenol/Sodium Phenolate Spray 180 ML Bottle MUCMEM PRN (14:17)
[2023-02-12] MEDS: Pantoprazole 40 MG Vial IVPUSH SCH (14:50)
[2023-02-13] MEDS: Ibuprofen 600 MG Tab PO SCH ×4 (03:45→22:54)
[2023-02-13] MEDS: Metoclopramide 10 MG/2 ML SDV IVPUSH SCH ×4 (03:45→22:54)
[2023-02-13] MEDS: Magnesium Sulfate/Water 2 GM in Premix Bag 1 BAG IV SCH ×4 (03:47→22:53)
[2023-02-13] MEDS: Acetaminophen 500 MG Tab PO SCH ×3 (05:31→22:54)
[2023-02-13] MEDS: Albuterol/Ipratropium 3.0-0.5 MG/3 ML Neb Soln INH SCH ×4 (07:28→20:09)
[2023-02-13] MEDS: ADVAIR 250/50 INHALER (PTOM) INH SCH ×2 (07:29→20:13)
[2023-02-13] MEDS: Dextrose 5%-Lactated Ringers 1,000 ML IV SCH ×2 (08:57→22:56)
[2023-02-13] MEDS: Bisacodyl 5 MG Tab PO SCH ×2 (09:01→20:13)
[2023-02-13] MEDS: buPROPion 150 MG Tab.SR PO SCH ×2 (09:02→20:13)
[2023-02-13] MEDS: SCOPOLAMINE PATCH CHECK TOP SCH (09:02)
[2023-02-13] MEDS: Docusate Sodium 100 MG Cap PO SCH ×2 (09:02→20:13)
[2023-02-13] MEDS: Pantoprazole 40 MG Vial IVPUSH SCH (14:50)
[2023-02-13] MEDS ORDERED: Magnesium Hydroxide 400 MG/5 ML Susp 30 ML Cup PO ONE (18:32)
[2023-02-13] MEDS: HYDROmorphone 2 MG Tab PO PRN (23:06)
[2023-02-14] MEDS ORDERED: Magnesium Hydroxide 400 MG/5 ML Susp 30 ML Cup PO PRN (02:00)
[2023-02-14] MEDS: Ibuprofen 600 MG Tab PO SCH (03:56)
[2023-02-14] MEDS: Magnesium Sulfate/Water 2 GM in Premix Bag 1 BAG IV SCH (03:57)
[2023-02-14] MEDS: Metoclopramide 10 MG/2 ML SDV IVPUSH SCH (03:58)
[2023-02-14] MEDS: HYDROmorphone 2 MG Tab PO PRN (04:21)
[2023-02-14] MEDS: Acetaminophen 500 MG Tab PO SCH (05:43)
[2023-02-14 07:20] VITALS: BP 139/88; PULSE 100
[2023-02-14] MEDS: Albuterol/Ipratropium 3.0-0.5 MG/3 ML Neb Soln INH SCH (07:33)
[2023-02-14] MEDS: ADVAIR 250/50 INHALER (PTOM) INH SCH (07:34)
[2023-02-14] MEDS: Scopolamine 1.5 MG Transdermal Patch TOP SCH (08:27)
[2023-02-14] MEDS: Docusate Sodium 100 MG Cap PO SCH (08:29)
[2023-02-14] MEDS: buPROPion 150 MG Tab.SR PO SCH (08:29)
[2023-02-14] MEDS: SCOPOLAMINE PATCH CHECK TOP SCH (08:29)
[2023-02-14] MEDS: Bisacodyl 5 MG Tab PO SCH (08:29)
[2023-02-14] MEDS ORDERED: Pantoprazole 40 MG Tab.CR PO SCH (15:00)
== END 2023-02-14 09:30 | disposition home or self-care (01) | DRG 330 ==
LOC: JP.SDSSCHI 06:51 → JP.MS 12:19
PROVIDERS: ADMIT Surgery; ATTEND Surgery
PROC: 0D1N0ZP Bypass Sigmoid Colon to Rectum, Open Approach (ICD-10-PCS; principal; 2023-02-08)
PROC: 0WQF0ZZ Repair Abdominal Wall, Open Approach (ICD-10-PCS; 2023-02-11)
DX: C19 Malignant neoplasm of rectosigmoid junction (principal); K50.90 Crohn's disease, unspecified, without complications; K56.7 Ileus, unspecified; F17.210 Nicotine dependence, cigarettes, uncomplicated; L40.9 Psoriasis, unspecified; K40.91 Unilateral inguinal hernia, without obstruction or gangrene, recurrent; J45.909 Unspecified asthma, uncomplicated; R73.03 Prediabetes; E66.9 Obesity, unspecified; Z68.33 Body mass index [BMI] 33.0-33.9, adult
CPT/HCPCS: 36415; 74019; 80053; 83735; 83880; 84100; 85025; 88305; 88309; 88341; 88342; 94640; A9270-GY; C9113; J0171; J0456; J1100; J1200; J1885; J1940; J2020; J2185; J2310; J2405; J2704; J2710; J2765; J2795; J3010; J3410; J3420; J3475; J3490; J7050; J7120; J7121; J7620

== ENCOUNTER 2023-02-16 | Emergency (ER) | payer OTHER ==
[2023-02-16] MEDS ORDERED: Sodium Chloride 0.9% 10 ML Syringe FLUSH PRN (00:08)
[2023-02-16 00:20] LABS: BASOPHILS ABSOLUTE AUTO 0.06 K/uL (0.00-0.10); BASOPHILS PERCENT AUTO 0.4 % (0.1-1.3); EOSINOPHILS ABSOLUTE AUTO 0.25 K/uL (0.00-0.40); EOSINOPHILS PERCENT AUTO 1.7 % (0.0-5.4); HEMATOCRIT 35.8 % (34.3-46.0); IMMATURE GRAN PERCENT AUTO 4.1 % (0.0-0.7); LYMPHOCYTES PERCENT AUTO 14.2 % (11.4-47.7); MEAN CORPUSCULAR HEMOGLOBIN 29.6 pg (31.6-35.5); MEAN CORPUSCULAR HGB CONC 33.5 g/dL (31.6-35.5); MEAN CORPUSCULAR VOLUME 88.4 fL (81.4-99.0); MONOCYTES ABSOLUTE AUTO 0.91 K/uL (0.20-0.90); MONOCYTES PERCENT AUTO 6.2 % (3.3-12.6); NEUTROPHILS ABSOLUTE AUTO 10.87 K/uL (1.0-7.6); NEUTROPHILS PERCENT AUTO 73.4 % (40.0-78.1); PLATELET COUNT,PLT 381 K/uL (130-375); RED BLOOD CELL COUNT 4.05 M/uL (3.77-5.24); WHITE BLOOD CELL COUNT,WBC 14.8 K/uL (3.2-11.0)
[2023-02-16 00:31] LABS: APPEARANCE,URINE CLEAR (CLEAR); BILIRUBIN,URINE NEGATIVE (NEGATIVE); COLOR,URINE YELLOW (YELLOW); GLUCOSE,URINE NEGATIVE (NEGATIVE); KETONES,URINE NEGATIVE (NEGATIVE); LEUKOCYTE ESTERASE,URINE NEGATIVE (NEGATIVE); NITRITE,URINE NEGATIVE (NEGATIVE); OCCULT BLOOD,URINE NEGATIVE (NEGATIVE); PROTEIN,URINE 100 mg/dL (NEGATIVE); UROBILINOGEN,URINE 0.2 EU/dL (0.2-1.0)
[2023-02-16 00:34] LABS: LACTIC ACID 6.8 mmol/L (0.4-2.0)
[2023-02-16 00:37] LABS: A/G RATIO 0.7 (1.2-2.2); ALANINE AMINOTRANSFERASE,ALT 51 U/L (12-78); ALBUMIN 2.7 g/dL (3.4-5.0); ALKALINE PHOSPHATASE 77 U/L (46-116); ASPARTATE AMNIOTRANSFERASE,AST 24 U/L (15-37); BILIRUBIN TOTAL 0.3 mg/dL (0.2-1.0); BLOOD UREA NITROGEN,BUN 10 mg/dL (7-18); CALCIUM 8.6 mg/dL (8.5-10.1); CARBON DIOXIDE,CO2 23 mmol/L (21-32); CHLORIDE,CL 104 mmol/L (100-108); CREATININE 1.1 mg/dL (0.6-1.0); EST CRCL DRUG DOSING (CG) 54.73 mL/min; ESTIMATED GFR 60 mL/min (>60); GLUCOSE RANDOM 121 mg/dL (74-106); MAGNESIUM 2.1 mg/dL (1.8-2.4); POTASSIUM,K 3.2 mmol/L (3.6-5.2); PROTEIN TOTAL,TP 6.6 g/dL (6.4-8.2); SODIUM,NA 143 mmol/L (140-148)
[2023-02-16 00:40] LABS: AMORPHOUS SEDIMENT,URINE MODERATE; BACTERIA,URINE FEW; EPITHELIAL CELLS,URINE RARE; MUCUS,URINE NOT SEEN; RBC,URINE 0-5 (0-5); WBC,URINE 0-5 (0-5)
[2023-02-16 01:00] LABS: ANION GAP 19.2 mmol/L (5.0-14.0)
[2023-02-16] MEDS ORDERED: LORazepam 2 MG/ML SDV IVPUSH ONE (02:21)
[2023-02-16] MEDS ORDERED: LORazepam 2 MG/ML SDV ONE (02:21)
[2023-02-16] MEDS ORDERED: Rocuronium 50 MG/5 ML Vial IVPUSH ONE (02:25)
[2023-02-16] MEDS ORDERED: Etomidate 2 MG/ML 10 ML SDV IVPUSH ONE (02:25)
[2023-02-16] MEDS ORDERED: propofoL 100 ML IV SCH (02:30)
[2023-02-16 02:44] VITALS: BP 141/84; PULSE 83
[2023-02-16 03:01] LABS: AMPHETAMINES SCREEN, URINE NEGATIVE (NEGATIVE); BARBITURATE SCREEN,URINE NEGATIVE (NEGATIVE); BENZODIAZEPINES SCREEN,URINE NEGATIVE (NEGATIVE); METHADONE SCREEN, URINE NEGATIVE (NEGATIVE); METHAMPHETAMINES SCREEN, URINE NEGATIVE (NEGATIVE); OXYCODONE SCREEN,URINE NEGATIVE (NEGATIVE); PROPOXYPHENE SCREEN,URINE NEGATIVE (NEGATIVE); THC SCREEN,URINE 50 NG/ML NEGATIVE (NEGATIVE)
[2023-02-16] MEDS ORDERED: fentaNYL 100 MCG/2 ML SDV IVPUSH ONE (03:24)
== END 2023-02-16 03:45 ==
LOC: JP.ED
DX: G40.401 Other generalized epilepsy and epileptic syndromes, not intractable, with status epilepticus (principal); C20 Malignant neoplasm of rectum; J45.909 Unspecified asthma, uncomplicated; M10.9 Gout, unspecified; E66.9 Obesity, unspecified; Z88.5 Allergy status to narcotic agent; Z88.8 Allergy status to other drugs, medicaments and biological substances; Z88.1 Allergy status to other antibiotic agents; Z20.822 Contact with and (suspected) exposure to COVID-19; Z68.35 Body mass index [BMI] 35.0-35.9, adult
CPT/HCPCS: 31500; 36415; 70450; 71045; 80053; 80305; 81001; 82947; 83605; 83735; 85025; 87040; 87635; 96374; 96375; 99285; J1953; J2060; J2704; J3010; J3490; U0002

== ENCOUNTER 2023-10-03 08:18 | Day surgery (SDC) | payer OTHER ==
[2023-10-03] MEDS: Lactated Ringers 1,000 ML IV SCH (09:31)
[2023-10-03] MEDS ORDERED: Midazolam 1 MG/ML 2 ML SDV ONE (10:46)
[2023-10-03] MEDS ORDERED: fentaNYL 50 MCG/ML SDV ONE (10:46)
[2023-10-03] MEDS ORDERED: Propofol 200 MG/20 ML SDV ONE ×2 (10:46→11:42)
[2023-10-03 13:14] VITALS: BP 137/91; PULSE 70
== END 2023-10-03 13:20 | disposition home or self-care (01) ==
LOC: JP.SDS 08:18
PROVIDERS: ATTEND Student in an Organized Health Care Education/Training Program
DX: D12.3 Benign neoplasm of transverse colon (principal); D12.0 Benign neoplasm of cecum; G40.909 Epilepsy, unspecified, not intractable, without status epilepticus; F17.200 Nicotine dependence, unspecified, uncomplicated; E66.9 Obesity, unspecified; Z68.34 Body mass index [BMI] 34.0-34.9, adult; Z79.899 Other long term (current) drug therapy
CPT/HCPCS: 45380; 45382; 88305; J2250; J2704; J3010; J7120

== ENCOUNTER 2024-11-15 06:50 | Day surgery (SDC) | payer OTHER ==
[~2024-11-15 06:50] MED LIST changes: +Dexamethasone 4 MG/ML SDV ONE; -Dextrose 5%-Lactated Ringers 1,000 ML IV SCH; +Glycopyrrolate 0.2 MG/ML 5 ML MDV ONE; -Midazolam 1 MG/ML 2 ML SDV ONE; +Neostigmine Methylsulfate 10 MG/10 ML MDV ONE; +Ondansetron 4 MG/2 ML SDV ONE; +Rocuronium 50 MG/5 ML Vial ONE; +Succinylcholine 200 MG/10 ML MDV ONE; +fentaNYL 250 MCG/5 ML SDV ONE; -fentaNYL 50 MCG/ML SDV ONE
[2024-11-15] MEDS: Lactated Ringers 1,000 ML IV SCH (07:16)
[2024-11-15] MEDS: ceFAZolin 2 GM in Premix Bag 1 BAG IV ONE (08:15)
[2024-11-15 08:16] LABS: A/G RATIO 1.1 (1.2-2.2); ALANINE AMINOTRANSFERASE,ALT 32 U/L (12-78); ALBUMIN 3.6 g/dL (3.4-5.0); ALKALINE PHOSPHATASE 78 U/L (46-116); ANION GAP 7.9 mmol/L (5.0-14.0); ASPARTATE AMNIOTRANSFERASE,AST 16 U/L (15-37); BILIRUBIN TOTAL 0.4 mg/dL (0.2-1.0); BLOOD UREA NITROGEN,BUN 18 mg/dL (7-18); CALCIUM 9.2 mg/dL (8.5-10.1); CARBON DIOXIDE,CO2 28 mmol/L (21-32); CHLORIDE,CL 107 mmol/L (100-108); EST CRCL DRUG DOSING (CG) 54.24 mL/min; ESTIMATED GFR 66 mL/min (>60); GLUCOSE RANDOM 87 mg/dL (74-106); POTASSIUM,K 3.7 mmol/L (3.6-5.2); PROTEIN TOTAL,TP 6.8 g/dL (6.4-8.2); SODIUM,NA 143 mmol/L (140-148)
[2024-11-15] MEDS ORDERED: fentaNYL 100 MCG/2 ML SDV ONE (08:37)
[2024-11-15] MEDS: Bupivacaine 0.25%/EPINEPHrine 1:200,000 30 ML SDV ONE (08:42)
[2024-11-15] MEDS ORDERED: Lactated Ringers 1,000 ML ONE (08:46)
[2024-11-15] MEDS ORDERED: Sugammadex Sodium 200 MG/2 ML VIAL IV ONE (09:17)
[2024-11-15] MEDS: HYDROmorphone 0.5 MG/0.5 ML Syringe IVPUSH ONE (09:54)
[2024-11-15] MEDS: oxyCODONE 5 MG Tab PO ONE (11:14)
[2024-11-15] MEDS: Morphine 2 MG/ML SYRINGE IVPUSH ONE (12:54)
[2024-11-15 13:41] VITALS: BP 123/55; PULSE 66
[2024-11-15] MEDS: Morphine 2 MG/ML SYRINGE IVPUSH PRN (15:16)
== END 2024-11-15 15:36 | disposition home or self-care (01) ==
LOC: JP.SDS 06:50
PROVIDERS: ATTEND Surgery
DX: K40.90 Unilateral inguinal hernia, without obstruction or gangrene, not specified as recurrent (principal); F17.200 Nicotine dependence, unspecified, uncomplicated
CPT/HCPCS: 36415; 80053; A9270-GY; C1781; J0330; J0690; J1100; J1596; J2270; J2405; J2704; J2710; J3010; J3490; J7120